=== PATIENT | female | born 1990 | race Caucasian/White ===

== ENCOUNTER 2016-05-20 14:04 | Observation (INO) | payer OTHER ==
[~2016-05-20 14:04] MED LIST: NOMED; [UNRECOGNIZED DRUG - REMARK]
[2016-05-20 15:38] LABS: Mean Corpuscular Hemoglobin 28.3 pg (27.0-35.0)
[2016-05-20] MEDS ORDERED: Lactated Ringer's 1,000 ML IV ONE (15:44)
--- NOTE | 2016-05-20 16:12 | DRSVH ---
PROCEDURE: US OB BIOPHYSICAL PROFILE AND UMBILICAL DOPPLER INDICATIONS: BPP, PLACENTA EVAL OUTSIDE/PRIOR DATING DATA: Last menstrual period (LMP): 09/19/15. LMP-based estimated date of delivery (CARLOS ALBERTO): 06/25/16. First dating scan (date and location): 11/22/15. Estimated date of delivery (CARLOS ALBERTO) from first dating scan: 06/22/16. TECHNIQUE: Real-time scanning was performed of the fetus for biophysical profile, with image documentation. Col or and pulse Doppler interrogation was also performed of the umbilical artery near its insertion into the placenta. COMPARISON: [facility], US, US OB FOLLOW UP GROWTH, 04/28/2016, 14:56. FINDINGS: General: A single living intrauterine gestation is present. Presentation: Vertex. Placenta: Placental position is posterior, without previa. [employer] ATTENDANT Ultrasound Procedure Report Summary Fetus Summary Heart Rate: 113 bpm Gestational Age from initial dating scan: 35 weeks, 2 days Findings(Amniotic Sac) Amniotic Fluid Index (JAY): 20.30 cm Pelvis and Uterus Cervix Length (Mean): 3.42 cm Biophysical Profile Amniotic Fluid Volume: 2 Breathin Gross Body Movement: 2 Tone: 2 Biophysical Profile Sum Score: 8 out of 8 possible points Findings(Pelvic Vascular Structure) Umbilical Artery S/D Ratio: 3.72, 3.83, 2.98, 3.98 IMPRESSION: Normal biophysical profile and cord Doppler with preserved diastolic flow. Dictated by: Julian Sommers A Interpreted: Giuseppe Greer MD on 05/20/2016 at 16:10 Transcribed by: LINA on 05/20/2016 at 16:11 Approved by: Giuseppe Greer M.D. on 05/20/2016 at 22:11
--- NOTE | 2016-05-20 16:17 | HP ---
[address] [address] HISTORY AND PHYSICAL PATIENT: MUNDO SEXTON : 1990 MR#: [id number] ADMIT: 05/20/2016 JOB ID: [id number] CHIEF COMPLAINT: Lightheadedness. HISTORY OF PRESENT ILLNESS: This is a 25-year-old G 2, P 1-0-0-1 female at 34 plus 6 weeks gestational age with an EDC of June 25, 2016 being seen in triage for complaints of dizziness, blurred vision, inability to speak, ringing in her ears and muffled hearing. The patient states that she has a history of atrial fibrillation and was at her [facility] appointment earlier today when she was talking with the intake person. She had sudden onset of tunnel vision, difficulty communicating, blurred vision, feeling like she was going to pass out and what she describes as speech sounding muffled in her ears. She states that that lasted for approximately 20 minutes and she has not felt the same since then. Following this, she called our nurse triage line complaining of similar complaints of blurred vision, ringing in her ears, her legs feeling heavy, headache and muffled speech at which point she was recommended to present to the [facility]. The patient presents to the [facility] on the afternoon of May 20. After being seen in triage, she was noted to have a 7 minute deceleration down to the 70s with good return to baseline following this. She is also complaining of sharp lower abdominal pain which has since resolved. PAST MEDICAL HISTORY: She states that she has a history of atrial fibrillation. After reviewing her [facility] electronic health record, it appears that she does not have a known diagnosis of this. Review of her record shows that she had an episode of tachycardia and called an ambulance several years prior. There was a questionable note of possible irregular heartbeat at that time, however, there was no documentation of this and she was discharged home without any medication. She followed up with a primary care provider who referred her to Cardiology and because Cardiology did not have any documentation of irregular heart rate, they opted to continue with expectant management and treat her for anxiety. She also has a history of anxiety as well previously controlled with SSRIs and bupropion. She does have a history of panic attacks but states that this does not feel the same. PAST SURGICAL HISTORY: section x1 in her last . OBSTETRICAL HISTORY: Her first was full term, primary low transverse section which appears to have been elective due to her questionable cardiac history. Her second is her current , complicated by anxiety and the echogenic intracardiac focus noted on ultrasonography. SOCIAL HISTORY: She denies any tobacco, alcohol or drug use. MEDICATIONS: Currently include vitamins. ALLERGIES: She has allergies to IBUPROFEN which causes hives, LATEX which causes a rash and CITALOPRAM which has caused night terrors. REVIEW OF SYSTEMS: Significant for normal movement. No loss of fluid. No vaginal bleeding. Her sharp lower abdominal pain has resolved and she does have the symptoms as noted above. PHYSICAL EXAM Objectively her blood pressure currently is 154/79. While on Labor and Delivery, it has ranged from 130s-150s systolic over 50s-70s diastolic. Her pulse is 84. She is satting 100% on room air and her temperature is 97.9. In general, she is awake, alert, oriented. She is in no acute distress. She is conversant and her speech is normal. Her cranial nerves are grossly intact. Extraocular movements are intact. Her heart shows regular rate and rhythm. There are no murmurs, rubs or gallops. Her lungs are clear to auscultation. Her abdomen is soft, obese, nontender with size appropriate for dates. heart tones: Electronic monitoring shows 125 baseline, moderate variability with good accelerations present. However, she did have a 7 minute decel down to the 70s shortly after admission, and tocometry shows no contractions. No irritability. ASSESSMENT: This is a 25-year-old G 2, P 1-0-0-1 female at 34 plus 6 weeks gestational age being evaluated for what is presumed to be a presyncopal episode, but with a questionable history of atrial fibrillation, elevated blood pressure at admission and a history of anxiety. PLAN: At this point in time, her symptoms appear to be improving. We will continue to monitor her blood pressures and evaluate with a PIH panel including protein creatinine ratio. Additionally an EKG has been ordered though she appears to be in normal sinus rhythm on examination, and she will be placed on telemetry. Ultrasound has been ordered to evaluate for BPP and her placenta. She had a growth ultrasound two weeks ago which showed EFW in the 52nd percentile with normal interval growth. Additionally a CMP is being collected to evaluate her blood sugar, liver function testing and electrolytes, and at this point in time , we will continue to monitor her overnight given her symptoms and the findings on examination including prolonged heart tone deceleration . Should her blood pressures normalize and her lab and imaging return within normal limits, she can likely discharge home tomorrow morning after extended and maternal monitoring. KIKE
[2016-05-20 16:33] VITALS: PULSE 95
[2016-05-20] MEDS: Lactated Ringer's 1,000 ML IV SCH ×2 (16:44→19:09)
[2016-05-20 20:00] VITALS: PULSE 89
--- NOTE | 2016-05-21 07:04 | PCM.DIOB ---
Obstetrical Disch Instruction Date of Service: May 21, 2016 Dates of Hospitalization Date of Hospital Admission May 20, 2016 at 16:00 Providers Admitting Physician: Deneen Santillan MD Primary Care Physician: Du Bunn MD Attending Physician: Deneen Santillan MD Discharge Diagnosis Discharge Diagnosis Presyncopal episode History of atrial fibrillation (questionable) Elevated blood pressure History of anxiety Problems: Diet Discharge Diet: No restrictions Activity Discharge Activity-General: No restrictions Additional Instructions Discharge Instructions Follow up by the end of this week (Thursday05/23/16) at [facility] for a blood pressure check. If you develop any of the following symptoms (headache, visual changes, abdominal pain) please call the [facility] clinic. If you have vaginal bleeding, call [facility] and if you have symptoms of dizziness & weakness with it, get emergency help. . Follow Up Plan Follow Up Plan [facility] for blood pressure check by Thursday (05/23/16). . Follow-up Provider (F9): [facility] Call your provider for: Shortness of breath, Heavy vaginal bleeding, Epigastric pain Arleen Arias DO May 21, 2016 07:04
[2016-05-21] MEDS: Lactated Ringer's 1,000 ML IV SCH ×2 (08:06)
[2016-05-21 09:25] VITALS: PULSE 84
[2016-05-21 10:57] VITALS: BP 117/71; PULSE 75; RESP 20
--- NOTE | 2016-05-23 15:13 | DIS ---
[address] [address] DISCHARGE SUMMARY PATIENT: MUNDO SEXTON : 1990 MR#: [id number] ADMIT: 05/20/2016 JOB ID: [id number] DIS: 05/21/2016 ADMISSION DIAGNOSES: 1. Visual changes. 2. Headaches. 3. Questionable unresponsiveness. 4. A 34 plus six week . DISCHARGE DIAGNOSIS: Presumed presyncopal event on the day prior. PROCEDURES PERFORMED: None. REASON FOR ADMISSION: This is a 25-year-old, G2, P 1-0-0-1 female who presented at 34 plus six weeks gestational age for extended monitoring after having a 20-minute episode that occurred at [facility] classes earlier in the day that included headaches, ringing in her ears, leg numbness and tingling, and slowed responsiveness due to tunnel vision. She was asked to present to the [facility] at which point she was noted to have elevated blood pressures and a 7-minute deceleration to the 70s. She also had a questionable history of atrial fibrillation and because of this, the decision was made to keep the patient for extended monitoring overnight. HOSPITAL COURSE: The patient was admitted on the . An EKG was completed which showed a normal sinus rhythm, and she had no further heart rate decelerations. CBC and CMP were collected and returned within normal limits. BPP was collected which was 8/8 Her blood pressures decreased to a normal value. She was kept on telemetry overnight which was reassuring, and her symptoms had resolved by the morning of hospital day #2, she had no further heart rate decelerations so at this point in time she was deemed stable for discharge. INSTRUCTIONS AT DISCHARGE: The patient was asked to return to our clinic for a blood pressure check in one week. She was also asked to return for any worsening signs or symptoms of palpitations or similar symptoms to what she had been experiencing prior to admission. A chart review done at the time of admission did not reveal a diagnosis of atrial fibrillation, though there were notes of a questionable diagnosis noted in her chart. If she does become symptomatic again, referral to Cardiology for further evaluation will be considered. Overall, given her reassuring clinical picture, she was discharged home and asked to follow up in the future in our clinic. KIKE
== END 2016-05-21 11:34 | disposition home or self-care (01) ==
LOC: FBCO 14:04 → FBC 16:00
PROVIDERS: ADMIT Obstetrics & Gynecology; ATTEND Obstetrics & Gynecology
DX: R42 Dizziness and giddiness (principal); H53.8 Other visual disturbances; R51 Headache; Z33.1 Pregnant state, incidental
CPT/HCPCS: 36415; 76819; 76820; 80053; 82570; 84156; 84550; 85027; 93005; G0378; G0463; J7120

== ENCOUNTER 2016-06-01 21:43 | Observation (INO) | payer OTHER ==
[2016-06-01] MEDS: Lactated Ringer's 1,000 ML IV SCH ×3 (23:15→23:48)
[2016-06-01] MEDS ORDERED: Ondansetron 2 mg/mL 2 mL Inj IVPUSH ONE (23:15)
[2016-06-02] MEDS: Lactated Ringer's 1,000 ML IV SCH ×2 (01:52→07:15)
[2016-06-02 02:12] LABS: BASOPHILS % (AUTO) 0.1 % (0-3); EOSINOPHILS % (AUTO) 0.9 % (0-5); MONOCYTES % (AUTO) 7.9 % (4-12); Mean Corpuscular Hemoglobin 28.2 pg (27.0-35.0); Mean Corpuscular Volume 86.5 fL (81-100); NEUTROPHILS % (AUTO) 61.4 % (40-74)
[2016-06-02 02:32] LABS: Platelet Count 205 bil/L (150-400)
--- NOTE | 2016-06-02 10:20 | PCM.DIOB ---
Arleen Arias DO 06/02/16 1016: Obstetrical Disch Instruction Date of Service: Jun 02, 2016 Dates of Hospitalization Date of Hospital Admission Jun 02, 2016 at 01:14 Providers Admitting Physician: Amira Guevara MD Primary Care Physician: Du Bunn MD Attending Physician: Amira Guevara MD Discharge Diagnosis Discharge Diagnosis Pre-term contractions not in labor No cervical change Problems: (1) contractions Qualifiers: Trimester: third trimester Qualified Code: O47.03 - False labor before 37 completed weeks of gestation, third trimester Status: Acute ICD Code: O47.00 (2) History of delivery, currently Status: Acute ICD Code: O34.21 Diet Discharge Diet: No restrictions Activity Discharge Activity-General: Other (Avoid vigorous activity and heavy lifting. ) Additional Instructions Discharge Instructions -Take warm baths and avoid vigorous activity or heavy lifting. -Take acetaminophen (Tylenol) as need for pain. -Stay hydrated. Remember to keep your bladder empty and drink plenty of water. -You are being sent home with two different medications for nausea. Take as directed and only as needed. -Plan for follow up at [facility] next week. -If you have an increase in frequency or intensity of contractions before tomorrow, return to the [facility]. -If you develop fever or chills, experience decrease movement, vaginal bleeding, or leaking of fluids return to the [facility]. -Return to [facility] tomorrow between 8-9am for additional monitoring. Follow Up Plan Follow Up Plan Return to [facility] tomorrow between 8-9am for NST. Follow up next week at [facility]. [facility]F9[facility] Call your provider for: Fever or Chills, Shortness of breath, Heavy vaginal bleeding, Epigastric pain Du Bunn MD 06/02/16 1106: Arleen Arias DO Jun 02, 2016 10:16 Du Bunn MD Jun 02, 2016 11:06
[2016-06-02] MEDS ORDERED: ONDA4TAB6 PO (10:21)
[2016-06-02] MEDS ORDERED: PROM25TA14 PO (10:21)
--- NOTE | 2016-06-02 10:34 | PCM.HPOB ---
Subjective Date of Service: Jun 02, 2016 Referring Provider: Admitting Physician: Amira Guevara MD Primary Care Physician: Du Bunn MD Attending Physician: Amira Guevara MD Chief Complaint Contractions History of Present History of Present Illness 25 y/o at 36w5d by LMP consistent with 9wk ultrasound presented to [facility] for contractions every 3-5minutes for several hours. She rated her pain with contractions as 8/10. complicated by previous , anxiety/depression, and an overnight hospital stay for presyncopal episode and 7 minutes of decelerations to the 70s on 05/20-05/21. She had a cardiac echogenic focus on anatomy ultrasound (02/14/16) with normal interval growth and BPP on repeat ultrasound. She has a questionable history of Afib but chart review does not show diagnosis. She is scheduled for repeat low transverse on . External monitoring revealed contractions q 2-3.5 minutes lasting 40- 70seconds and rated as mild-moderate. FHR baseline 115, moderate variability, accelerations present, no decelerations. Cervix: 1cm dilated, thick, posterior, -3station. Past Medical History Obstetrical History: section 10/03/2014 Gynecologic History: None Medical History: Migraines Nephrolithiasis Inguinal hernia Depression Anxiety Surgical History: section 2015 Hernia repair 1997 . Hx Tobacco Use: Yes Smoking Status: Former Smoker Hx Alcohol Use: No Hx Substance Use: No Past Family History Living Arrangement: with Family Review of Systems ROS Complete review of systems conducted and otherwise negative except as above in HPI. Allergy Coded Allergies: latex (Verified Allergy, Intermediate, rash, 12/06/15) ibuprofen (Verified Adverse Reaction, Intermediate, NAUSEA, 12/06/15) GI INTOLERANCE Uncoded Allergies: ANTIANXIETY MEDICATION (Adverse Reaction, Intermediate, 06/25/15) NIGHT TEARS Exam Vital Signs temp 36.5, BP 131/72, HR 93. Exam FHR baseline 115, moderate variability, accelerations present, no decelerations. Constitutional: Well-developed, Well-nourished HEENT: Atraumatic Lungs: Clear to Auscultation Heart: Regular Rate/Rhythm Abdomen: Gravid Extremities: No Edema Neurological/Psychiatric: Alert, Oriented X3 Labs/Diagnostics Labs 06/01/16 22:30: White Blood Count 11.3, Red Blood Count 3.93, Hemoglobin 11.1, Hematocrit 34.0, Mean Corpuscular Volume 86.5, Mean Corpuscular Hemoglobin 28.2, Mean Corpuscular Hemoglobin Concent 32.6, Red Cell Distribution Width 14.8, Platelet Count 205, Neutrophils (%) (Auto) 61.4, Lymphocytes (%) (Auto) 29.4, Monocytes ( %) (Auto) 7.9, Eosinophils (%) (Auto) 0.9, Basophils (%) (Auto) 0.1, Hold Purple Top Tube Received . Lab/Diagnostic Information Labs Blood type: O positive Antibody screen-negative GBS negative PAP negative (negative 10/2013) Varicella/Rubella immune RPR nonreactive HBsAg negative HepC negative HIV screen negative HbA1c 5.6 RSH 3.24 Chlamydia negative Gonorrhea negative US OB<14wks (11/22/2015) -LMP 09/19/15 -LMP-based CARLOS ALBERTO 06/25/16 (Final CARLOS ALBERTO) -First dating scan 11/22/15 -CARLOS ALBERTO from first dating scan 06/22/16 US OB Reevaluate Incomplete Anatomy Limited (02/14/16) -Targeted cardiac anatomy remarkable for a left ventricular echogenic focus, most likely reflecting a normal variant. US f/u Left ventricular echogenic focus (04/28/16) -Normal interval growth US f/u for growth (05/20/2016) -Normal biophysical profile and cord Doppler with preserved diastolic flow Maternal Blood Type: O Hx Rho(D) Immune Globulin: Yes Antibody Screen: Negative Group B Strep Results: Negative Rubella: Immune OB Intrapartum Assessment/Plan Assessment 25 y/o at 36w5d who presented to [facility] for pre-term contractions without cervical change. She is scheduled for repeat low transverse on 06/18/16. Problems: (1) contractions Qualifiers: Trimester: third trimester Qualified Code: O47.03 - False labor before 37 completed weeks of gestation, third trimester Plan: -Mother and baby monitored overnight. Pt not in labor, no cervical change. -Pt to return to [facility] tomorrow between 8-9am for repeat NST. -Counseled regarding signs/symptoms that warrant return to [facility] before tomorrow. -Pt discharged in stable condition, status reassuring. -Scripts provided for oral promethazine & zofran prn -Repeat scheduled for 06/18/16 -Follow up scheduled [facility] at [facility] Status: Acute ICD Code: O47.00 (2) History of delivery, currently Plan: -Repeat low transverse section scheduled for 06/18/16. Status: Acute ICD Code: O34.21 Pain Evaluation: Adequate Pain Control Post plan: Anticipate discharge home today Attending Statement The patient was seen and examined together with Dr. Arias on 06/02/2016 and I agree with the history, exam and plan as outlined in the note above. She has had IVF and prolonged monitoring. She is not in labor. She does not evidence of uterine rupture at this time. While she is at risk for uterine rupture, her risk at this time is low. There is no indication for delivery. We will continue to monitor Pretty closely as an outpatient and strict precautions reviewed with Pretty. We will discharge her home. / MD Hugo Hernadez Courtney M DO Jun 02, 2016 07:19 Du Bunn MD Jun 02, 2016 11:04
--- NOTE | 2016-06-02 10:48 | PCM.DC.OB ---
Obstetrical Discharge Summary Date of Service Jun 02, 2016 Date of hospital admission Jun 02, 2016 at 01:14 Date of Discharge: Jun 02, 2016 Providers Admitting Physician: Amira Guevara MD Primary Care Physician: Du Bunn MD Attending Physician: Amira Guevara MD Problems: (1) contractions Qualifiers: Trimester: third trimester Qualified Code: O47.03 - False labor before 37 completed weeks of gestation, third trimester Plan: -Mother and baby monitored overnight. Pt not in labor, no cervical change. -Pt to return to [facility] tomorrow between 8-9am for repeat NST. -Counseled regarding signs/symptoms that warrant return to [facility] before tomorrow. -Pt discharged in stable condition, status reassuring. -Scripts provided for oral promethazine & zofran prn -Repeat scheduled for 06/18/16 -Follow up scheduled next [facility] at [facility] Status: Acute ICD Code: O47.00 (2) History of delivery, currently Plan: -Repeat low transverse section scheduled for 06/18/16. Status: Acute ICD Code: O34.21 Brief History and Physical: 25 y/o at 36w5d with pre-term contractions not resulting in cervical change. Category 1 tracing. Cervix: 1cm dilated, thick, posterior, -3 station. Vital Signs temp 36.5, BP 131/72, HR 93. Constitutional: Well-developed, Well-nourished HEENT: Atraumatic Lungs: Clear to Auscultation Heart: Regular Rate/Rhythm Abdomen: Gravid Extremities: No Edema Neurological/Psychiatric: Alert, Oriented X3 Labs Blood type: O positive Antibody screen-negative GBS negative PAP negative (negative 10/2013) Varicella/Rubella immune RPR nonreactive HBsAg negative HepC negative HIV screen negative HbA1c 5.6 RSH 3.24 Chlamydia negative Gonorrhea negative US OB<14wks (11/22/2015): CARLOS ALBERTO 06/25/16 Hospital Course: 25 y/o at 36w5d by LMP consistent with 9wk ultrasound presented to [facility] with contractions every 3-5minutes for several hours. She was monitored overnight and pre-term contractions did not result in cervical change. NST was reassuring and she was discharged the following morning with plan to return in 24hrs for repeat NST. She is scheduled for repeat low transverse on 06/18/16. External monitoring revealed contractions q 2- 3.5 minutes lasting 40-70seconds and rated as mild-moderate. FHR baseline 115, moderate variability, accelerations present, no decelerations. Cervix: 1cm dilated, thick, posterior, -3 station. ([Anxietrym Depression]) 0 (Reported) No Historical Medication (No Historical Medication) Ea (Reported) Ondansetron (Zofran) 4 Mg Tablet 4 MG PO Q4H PRN PRN For Nausea Prescribed by: LANDON MARSHALL DO Promethazine (Promethazine) 25 Mg Tablet 25 MG PO Q8H PRN PRN For Nausea/ Vomiting Prescribed by: LANDON MARSHALL DO Disposition Patient discharged home in stable condition. contractions without cervical change. status reassuring. Follow-up plan Patient to return to [facility] tomorrow between 8-9am for NST. Follow up next week at [facility]. Discharge Diet: No restrictions Discharge Activity-General: Other (Avoid vigorous activity and heavy lifting. ) Patient instructions -Take warm baths and avoid vigorous activity or heavy lifting. -Take acetaminophen (Tylenol) as need for pain. -Stay hydrated. Remember to keep your bladder empty and drink plenty of water. -You are being sent home with two different medications for nausea. Take as directed and only as needed. -Plan for follow up at [facility] next week. -If you have an increase in frequency or intensity of contractions before tomorrow, return to the [facility]. -If you develop fever or chills, experience decrease movement, vaginal bleeding, or leaking of fluids return to the [facility]. -Return to [facility] tomorrow between 8-9am for additional monitoring. Attending Statement: The patient was seen and examined together with Dr. Marshall on and I agree with the history, exam and plan as outlined in the note above. / mD Hugo Black Courtney M DO Jun 02, 2016 10:34 Du Bunn MD Jun 02, 2016 11:06
== END 2016-06-02 10:30 | disposition home or self-care (01) ==
LOC: FBCO 21:43 → FBC 06-02 01:14
PROVIDERS: ADMIT Obstetrics & Gynecology; ATTEND Obstetrics & Gynecology
DX: Z34.93 Encounter for supervision of normal pregnancy, unspecified, third trimester (principal); Z3A.36 36 weeks gestation of pregnancy
CPT/HCPCS: 36415; 85025; 86850; G0378; G0463; J7120; Q0169

== ENCOUNTER 2016-06-18 05:07 | Inpatient (IN) | payer OTHER ==
[~2016-06-18] VITALS: Ht 182.9 cm; Wt 105.2 kg
[~2016-06-18 05:07] MED LIST changes: +CeFAZolin Inj 2 GM in IV Premix 1 EACH IV ONE; +Lactated Ringer's 1,000 ML IV SCH; +ONDA4TAB6 PO; +PROM25TA14 PO
[2016-06-18] MEDS ORDERED: Methylergonovine 0.2 mg/mL Inj IM PRN ×2 (06:00→09:40)
[2016-06-18] MEDS ORDERED: Oxytocin 10 Unit/mL Inj IM PRN ×2 (06:00→09:40)
[2016-06-18] MEDS ORDERED: Sodium Citrate-Citric Acid 15 mL Solution PO SCH (06:00)
[2016-06-18] MEDS ORDERED: Hemorrhage Kit, Post Partum XX ONE ×2 (06:00→09:40)
[2016-06-18] MEDS ORDERED: Carboprost 250 mCg/mL Inj IM PRN ×2 (06:00→09:40)
[2016-06-18] MEDS ORDERED: Lactated Ringer's 1,000 ML IV SCH ×2 (06:00→09:39)
[2016-06-18 06:37] LABS: Mean Corpuscular Hemoglobin 27.7 pg (27.0-35.0); Mean Corpuscular Volume 85.4 fL (81-100)
--- NOTE | 2016-06-18 06:59 | PCM.HPANE ---
Patient Data Surgeon Admitting Provider:Deneen Santillan MD Attending Provider:Deneen Santillan MD Primary Care Physician:Zoë Petit Other Provider:Edward Hanson Anesthesia Reason for Visit Term Repeat C Section TERM REPEAT C SECTION Ht/WT & BMI Body Mass Index Allergies Coded Allergies: latex (Verified Allergy, Intermediate, rash, 12/06/15) ibuprofen (Verified Adverse Reaction, Intermediate, NAUSEA, 12/06/15) GI INTOLERANCE Uncoded Allergies: ANTIANXIETY MEDICATION (Adverse Reaction, Intermediate, 06/25/15) NIGHT TEARS Diabetes History Hx Diabetes?: No Medications Reported Medications Vit W-Ca,Fe,FA(<1 mg) ( Vitamins)1 Each Tablet1 Each PO DAILY 06/18/16 [Anxietrym Depression] No Conflict Check 06/28/13 No Historical Medication Ea 05/30/12 Discontinued Scripts Ondansetron (Zofran)4 Mg Tablet4 Mg PO Q4H PRN For Nausea #30 TABLET Prov:Arleen Arias DO 06/02/16 Promethazine 25 Mg Qphzed31 Mg PO Q8H PRN For Nausea/Vomiting #20 TABLET Prov:Arleen Arias DO 06/02/16 History Cardiovascular History: Denies:: Congestive Heart Failure Hypertension Other Cardiac History: history of afib Respiratory History: Denies:: Tuberculosis Hx Surgeries?: Yes (c section 09/25, hernia) Hx Diabetes: No Hx Alcohol Use: NoHx Substance Use: No Smoking Status: Former Smoker Have You Smoked inLast 12 mo: No Stop/Bang Risk Assessment Category Category 1A: Patient has history of documented sleep apnea, and HAS NOT received any narcotic, sedative or anesthesia administration during this stay. Category 1B: Patient has history of documented sleep apnea, and HAS received any narcotic , sedative or anesthesia administration during this stay Category 2: Patient has SUSPECTED Obstructive Sleep Apnea, and HAS received any narcotic , sedative or anesthesia administration during this stay. Category 3: Patient has SUSPECTED Obstructive Sleep Apnea and HAS NOT received narcotic, sedative or anesthesia administration during this stay. Category 4: Outpatient in Procedural Areas with known sleep apnea or who screen positive for High Risk via the STOP/BANG questionnaire. Meds/Labs/Diagnostics Admission Meds Current Medications Lactated Ringer's (Lr) 1,000 ml @ 120 mls/hr Q8H20M IV Last administered on t 06:38; Start 06/18/16 at 05:00; Stop 06/18/16 at 13:19 Labs Test 06/18/16 06:15 White Blood Count 9.5th/mm3 (3.8-10.1) Red Blood Count 3.90mil/mm3 (3.90-5.20) Hemoglobin 10.8g/dL (12.0-15.6) Hematocrit 33.3% (35.0-46.0) Mean Corpuscular Volume 85.4fL (81-100) Mean Corpuscular Hemoglobin 27.7pg (27.0-35.0) Mean Corpuscular Hemoglobin Concent 32.4% (32.0-37.0) Red Cell Distribution Width 15.0% (12.3-15.4) Platelet Count 184bil/L (150-400) Plan Impression Patient chart reviewed, patient interviewed and anesthestic plan with risks, benefits, and alternatives discussed, and informed consent obtained. ASA Physical Status: ASA2 Mod Systemic Disease Anesthetic Plan: SAB Bene/Risks/Altern/Consents: Yes HP Complete Prior to Induction: Yes Ene Pickett MD Jun 18, 2016 06:59
[2016-06-18] MEDS ORDERED: Morphine PF 1 mg/mL 10 mL Inj ONE (07:16)
[2016-06-18] MEDS ORDERED: CeFAZolin Inj 2 GM in IV Premix 1 EACH IV ONE (07:30)
[2016-06-18] MEDS ORDERED: PREN1TAB87 PO (07:39)
[2016-06-18] MEDS ORDERED: Glycopyrrolate 0.2 mg/mL 5 mL Inj ONE (08:30)
[2016-06-18] MEDS ORDERED: Phenylephrine/NS-PF 100 mCg/mL 5 mL Syringe IVPUSH ONE (08:30)
[2016-06-18] MEDS ORDERED: Ondansetron 2 mg/mL 2 mL Inj ONE (08:30)
[2016-06-18] MEDS ORDERED: fentaNYL-PF 50 mCg/mL 2 mL Inj IVPUSH PRN (08:45)
[2016-06-18] MEDS ORDERED: EPHEDrine Sulfate 50 mg/mL Inj IVPUSH PRN (08:45)
[2016-06-18] MEDS ORDERED: Ondansetron 2 mg/mL 2 mL Inj IVPUSH PRN (08:45)
[2016-06-18] MEDS ORDERED: Atropine 0.4 mg/mL Inj IV PRN (08:45)
[2016-06-18] MEDS ORDERED: MetoCLOpramide 5 mg/mL 2 mL Inj IVPUSH PRN (08:45)
[2016-06-18] MEDS ORDERED: Dexamethasone 4 mg/mL Inj IVPUSH PRN (08:45)
[2016-06-18] MEDS ORDERED: LANOlin HPA 7 Gm Ointment TOPICAL PRN (09:40)
[2016-06-18] MEDS ORDERED: Sodium Chloride LOK Flush 10 mL Syringe IVFLUSH PRN (09:40)
[2016-06-18] MEDS ORDERED: hydrOXYzine Pamoate 25 mg Capsule PO PRN (09:40)
[2016-06-18] MEDS ORDERED: diphenhydrAMINE 50 mg Capsule PO PRN (09:40)
[2016-06-18] MEDS ORDERED: Oxytocin 30 Units/500 mL LR 30 UNITS in IV Premix 1 EACH IV PRN (09:40)
--- NOTE | 2016-06-18 09:57 | PCM.ANEP1 ---
Post Anesthesia Phase 1 PACU Phase 1 Assessment Anesthetic Administered: SAB Level of Alertness: Awake, talking VEGA's with Equal Strength: No Pain: No Nausea or Vomiting: No Oxygen Delivery: Room Air Ene Pickett MD Jun 18, 2016 09:57
[2016-06-18] MEDS: Acetaminophen IV 1,000 MG in IV Premix 1 EACH IV PRN ×2 (10:36→13:33)
--- NOTE | 2016-06-18 11:23 | OP ---
[address] [address] OPERATIVE REPORT PATIENT: MUNDO SEXTON : 1990 MR#: [id number] ADMIT: 06/18/2016 JOB ID: [id number] DATE OF SURGERY: 06/18/2016 PREOPERATIVE DIAGNOSIS(ES): 1. A 39 week intrauterine , here for repeat low transverse section. 2. History of elective delivery in her first , declined trial of labor after . 3. Anxiety. 4. Echogenic intracardiac focus of the fetus. 5. Syncopal event in requiring prolonged monitoring with heart rate bradycardia noted on extended antepartum monitoring at 35 weeks. POSTOPERATIVE DIAGNOSIS(ES): 1. A 39 week intrauterine , here for repeat low transverse section. 2. History of elective delivery in her first , declined trial of labor after . 3. Anxiety. 4. Echogenic intracardiac focus of the fetus. 5. Syncopal event in requiring prolonged monitoring with heart rate bradycardia noted on extended antepartum monitoring at 35 weeks. PROCEDURE PERFORMED: Repeat low transverse section. SURGEON: Deneen Santillan MD. ED SPECIAL EDUCATION TEACHER: Estefani Nolen MD who was necessary for retraction and to help with difficult case, as the patient had a moderate amount of scar tissue within her abdomen. ANESTHESIA: Spinal with Duramorph. ESTIMATED BLOOD LOSS: 500 cc. FLUID REPLACEMENT: 800 cc of crystalloid. URINE OUTPUT: 300 cc of clear yellow urine. FINDINGS: Liveborn male infant, born on June 18, 2014, weighing 8 pounds 3 ounces or 3711 g, with Apgars of 1 at one minute, 6 at five minutes and 9 at 10 minutes. Delivery time was 8:45 a.m. COMPLICATIONS: None. INDICATIONS: This is a 25-year-old, G2, P 1-0-0-1 female who is presenting at 39 plus 0 weeks gestational age with EDC of June 25, 2016, for a planned elective repeat low transverse section. Her was complicated by history of x1 in her first that was elective due to a questionable history of atrial fibrillation, which has never been confirmed. She elected to forego trial of labor and proceed with a repeat section. She also had anxiety and questionable history of cardiac arrhythmia, possibly atrial fibrillation, with a syncopal event occurring at 35 weeks with documented bradycardia during extended monitoring with recovery following this and an echogenic intracardiac focus of the fetus. lab data showed a blood type of O positive, antibody screen negative, rubella immune, varicella immune, hep B surface antigen negative, RPR nonreactive, HIV negative. She was also GBS negative. She was admitted on the 8th to undergo the above-stated procedure after risks, benefits and alternatives were discussed with her prior to proceeding. DESCRIPTION OF PROCEDURE: The patient was taken to the operating room. She was given a spinal with Duramorph. She was then prepped and draped in the usual sterile fashion for section. Under excellent anesthesia, the skin was entered sharply through a Pfannenstiel incision along the previous incision line. This was carried down sharply to the level of the rectus fascia. The fascia was then incised in the midline and this incision was carried sharply bilaterally. There was noted to be a moderate amount of scar tissue along the fascia to the underlying omentum which was carefully taken down sharply and due to the large diastasis, the peritoneum was easily identifiable and entered bluntly. This entrance was extended bluntly bilaterally. The bladder blade was then placed. A bladder flap was created after lifting up the vesicouterine peritoneum and sharply incising it off the lower uterine segment and reflecting it downward. The bladder blade was then placed. The lower uterine segment was noted to be very thin, and a small incision was made using the scalpel. There was return of a moderate amount of clear amniotic fluid. This incision was extended bluntly. The 's vertex was brought to the uterine incision and delivered atraumatically through the uterine incision. Anterior shoulder delivered easily, followed by the posterior shoulder. The was noted to have low tone at delivery, so the cord was clamped and cut, and the infant was passed to the Nursing and Respiratory teams who were in attendance. Due to the poor tone that was identified, cord blood gases were collected by removing a section of the umbilical cord. Cord blood was then obtained. The placenta delivered intact spontaneously and was passed off the table. Pitocin was placed in the IV bag to firm the uterus. The uterus was removed from the abdominal cavity, covered with moist laps and cleaned with a lap sponge. The uterus was then closed in a single locking layer of 0 Vicryl. A second imbricating layer of 0 Vicryl was then placed on top of this, and good hemostasis was achieved. The posterior cul-de-sac was irrigated. The uterus was replaced into the abdominal cavity. The pericolic gutters were cleared of clot and debris, and the incision was again noted to be hemostatic. Due to the large diastasis, the rectus muscles were then reapproximated in the midline with 0 Vicryl using both interrupted and running suture. The fascia was then closed with 0 Vicryl in a running, nonlocking fashion. The subcutaneous tissues made hemostatic with cautery and was then closed with plain gut suture, and the skin was then closed with 4-0 Vicryl. The patient tolerated this procedure well. Recovered in labor and delivery with her infant. All sponge, needle, instrument counts were correct at the completion of the procedure. KIKE
--- NOTE | 2016-06-18 17:49 | PCM.ANEP2 ---
Post Anesthesia Evaluation ASA/CMS Post Anesthesia VS in Patient's Normal Range?: Yes Resp Stable; Airway Patent?: Yes CV Function & Hydration Stable: Yes Mental Status Recovered?: Yes Pain control Satisfactory?: Yes N/V Control Satisfactory?: Yes Ene Pickett MD Jun 18, 2016 17:49
[2016-06-18] MEDS: oxyCODONE-Acetamin 5-325 mg Tablet PO PRN ×2 (18:26→22:07)
[2016-06-19] MEDS: oxyCODONE-Acetamin 5-325 mg Tablet PO PRN ×3 (02:15→22:22)
--- NOTE | 2016-06-19 06:53 | PCM.PNOBPP ---
Subjective Date of Service Jun 19, 2016 Post : Repeat Ceserean Delivery Subjective This is a 25-year-old, G2, P 2-0-0-2 female post- day 1 status post elective repeat low transverse on 06/18/16 at 39 plus 0 weeks gestational age. Her was complicated by history of x1 in her first that was elective due to a questionable history of atrial fibrillation, which has never been confirmed, anxiety, and a syncopal event occurring at 35 weeks with documented bradycardia during monitoring with recovery following this and an echogenic intracardiac focus of the fetus. lab data showed a blood type of O positive, antibody screen negative, rubella immune, varicella immune, hep B surface antigen negative, RPR nonreactive, HIV negative. She was also GBS negative. This morning patient is doing well. The catheter has been removed and she has been able to urinate on her own. Bleeding has slowed and she is soaking 1 pad every 3-4 hours. She has not had a bowel movement but has passed flatus. She is breast-feeding exclusively and baby is latching well. She is tolerated oral intake without nausea or vomiting. Pain is rated as an 8 prior to pain medications and after administration decreases to a 3 or 4. Pain currently controlled with Roxicodone as patient reached her Tylenol limit with Percocet. Lochia: Normal Pain Management: PO pain meds Gastrointestinal: Good Appetite, No N/V, Passing Flatus Postop Activity: Ambulating in Room Only Group B Strep Results: Negative Rubella: Immune Blood Type: O RH Type: Positive Labs Laboratory Tests 06/18/16 06:15: White Blood Count 9.5, Red Blood Count 3.90, Hemoglobin 10.8, Hematocrit 33.3, Mean Corpuscular Volume 85.4, Mean Corpuscular Hemoglobin 27.7, Mean Corpuscular Hemoglobin Concent 32.4, Red Cell Distribution Width 15.0, Platelet Count 184 Exam Vital Signs Vital Signs: VS reviewed, stable Exam Abdomen: Uterus is, Fundus firm, Abdomen soft, Abdomen appropriately tender Perineum: Intact : UOP has been, Voiding without difficulty Extremities: Normal pulses, Edema 1+, SCDs on Lungs: Clear to Auscultation Heart: Regular Rate/Rhythm, Normal S1, Normal S2, No Murmurs/Rubs/Gallops General: Alert, Oriented X3, Cooperative, No Acute Distress Surgical Wound : Wound Location/Description Pfannenstiel incision Incision General Appearence: Steri Strips, Wound under dressing Dressing & Drainage Status: Dry & Intact, No Odor OB Post Assessment/Plan Assessment 1. 25-year-old, G2, P 2-0-0-2 female post- day 1 status post elective repeat low transverse on 06/18/16 at 39 plus 0 weeks gestational age. 2. History of elective delivery in her first . 3. Anxiety. 4. Echogenic intracardiac focus of the fetus. 5. Syncopal event in requiring prolonged monitoring with heart rate bradycardia noted on extended antepartum monitoring at 35 weeks. Pain Management: Roxicodone and ibuprofen Pain Evaluation: Adequate Pain Control VTE Mechanical Devices: Intermittant Pneumatic CD Post plan: Continue routine post care Plan: 1. She is doing well and meeting all goals. Will continue routine care at this time. 2. Continue pain control with Roxicodone as needed. Attending Statement The patient was seen and examined and I agree with the history, exam and plan as outlined in the note above. MARYJANE GODINEZ DO Jun 19, 2016 06:53 Deneen Santillan MD Jun 20, 2016 11:52
[2016-06-19 06:57] LABS: Mean Corpuscular Hemoglobin 27.4 pg (27.0-35.0); Mean Corpuscular Volume 87.1 fL (81-100)
[2016-06-19] MEDS ORDERED: Ascorbic Acid 500 mg Tablet PO SCH (08:00)
[2016-06-20] MEDS: oxyCODONE-Acetamin 5-325 mg Tablet PO PRN (02:30)
--- NOTE | 2016-06-20 07:56 | PCM.DIOB ---
Obstetrical Disch Instruction Dates of Hospitalization Date of Hospital Admission Jun 18, 2016 at 05:07 Providers Admitting Physician: Deneen Santillan MD Primary Care Physician: Zoë Petit Attending Physician: Deneen Santillan MD Discharge Diagnosis Discharge Diagnosis 1. 25 year old female post day 2 status post elective repeat low transverse on 06/18/16. 2. History of elective delivery in her first , declined trial of labor after . 3. Anxiety. 4. Echogenic intracardiac focus of the fetus. 5. Syncopal event in requiring prolonged monitoring with heart rate bradycardia noted on extended antepartum monitoring at 35 weeks. Post Operative diagnosis 1. A 39 week intrauterine , here for repeat low transverse section. 2. History of elective delivery in her first , declined trial of labor after . 3. Anxiety. 4. Echogenic intracardiac focus of the fetus. 5. Syncopal event in requiring prolonged monitoring with heart rate bradycardia noted on extended antepartum monitoring at 35 weeks. Problems: Diet Discharge Diet: No restrictions Activity Discharge Activity-General: Pelvic Rest for 6 weeks, Try not to overdue, Be up and about, Balance rest and activity, No lifting >15 pounds for 2 weeks Dressing and Incisional Care Dressing Care: Allow Steri Stripes to fall off Hygiene: DO NOT soak incision under water, NO bathtub, hot tub or whirlpool Follow Up Plan Follow Up Plan Please follow up with [facility] within 2 and 6 weeks. Call your provider for: Fever or Chills, Shortness of breath, Heavy vaginal bleeding, Heavy bleeding, Epigastric pain, Excessive constipation, Vaginal discomfort, Red painful breasts Additional Information We are prescribing you Keflex, antibiotic, to prevent skin infection at the site of your incision. Please take it as directed. Christy Baker DO Jun 20, 2016 07:52
[2016-06-20] MEDS ORDERED: CEPH-512 PO (07:58)
--- NOTE | 2016-06-20 08:18 | PCM.DC.OB ---
Obstetrical Discharge Summary Date of Service Jun 20, 2016 Date of hospital admission Jun 18, 2016 at 05:07 Date of Discharge: Jun 20, 2016 Providers Admitting Physician: Deneen Santillan MD Primary Care Physician: Zoë Petit Attending Physician: Deneen Santillan MD Diagnosis at Time of Discharge 1. 25-year-old post day 2 status post elective repeat low transverse . 2. History of elective delivery in her first , declined trial of labor after . 3. Anxiety. 4. Echogenic intracardiac focus of the fetus. 5. Syncopal event in requiring prolonged monitoring with heart rate bradycardia noted on extended antepartum monitoring at 35 weeks. Problems: Date of Procedure: Jun 18, 2016 Brief History and Physical: This is a 25-year-old, G2, P 2 female post- day 2 status post elective repeat low transverse on 06/18/16 at 39 plus 0 weeks gestational age. Her was complicated by history of x1 in her first that was elective due to a questionable history of atrial fibrillation, which has never been confirmed, anxiety, and a syncopal event occurring at 35 weeks with documented bradycardia during monitoring with recovery following this and an echogenic intracardiac focus of the fetus. lab data showed a blood type of O positive, antibody screen negative, rubella immune, varicella immune, hep B surface antigen negative, RPR nonreactive, HIV negative. She was also GBS negative. Patient delivered live born male , 8 pounds, 3 ounces (3711 g), with Apgars of 1 at one minute, 6 at five minutes, and 9 at ten minutes. This morning patient is doing well. She is afebrile and her vital signs are stable. She is urinating without any difficulties. She has not had bowel movement but has passed flatus. She is ambulating on her own. She is breast- feeding exclusively and baby is latching well. She is tolerating oral intake without nausea or vomiting. Pain is well controlled. Her lab values on 06/19/16: White Blood Count 10.1, Hemoglobin 10.6, Hematocrit 33.7, Platelet Count 176. Hospital Course: Patient is day two after repeated low transverse section on 06/18/16.Patient and baby are doing well. Patient is breast-feeding exclusively. She will discuss contraception at her visit. She has minimal pain that is well controlled with pain medications.Tolerating oral intake without nausea and vomiting, and ambulating without difficulties. Cephalexin (Keflex) 500 Mg Capsule 500 MG PO QID Prescribed by: MP FORBES DO Vit W-Ca,Fe,FA(<1 mg) ( Vitamins) 1 Each Tablet 1 EACH PO DAILY (Reported) Discontinued Medications ([Anxietrym Depression]) 0 (Reported) No Historical Medication (No Historical Medication) Ea (Reported) Ondansetron (Zofran) 4 Mg Tablet 4 MG PO Q4H PRN PRN For Nausea Prescribed by: LANDON MARSHALL DO Promethazine (Promethazine) 25 Mg Tablet 25 MG PO Q8H PRN PRN For Nausea/ Vomiting Prescribed by: LANDON MARSHALL DO Discharge Diet: No restrictions Discharge Activity-General: Pelvic Rest for 6 weeks, Try not to overdue, Be up and about, Balance rest and activity, No lifting >15 pounds for 2 weeks Additional information 1. Please take Keflex 500 mg four times a day for 5 days to prevent skin infection 2. Please take Percocet as prescribed for pain as needed 3, Please take Colace 100 mg twice a day as needed for constipation Mp Forbes DO Jun 20, 2016 08:18
[2016-06-20] MEDS ORDERED: OXYC1TAB24 PO (08:26)
[2016-06-20] MEDS ORDERED: DOCU-41 PO (08:26)
[2016-06-20 08:41] VITALS: BP 119/61; PULSE 88; RESP 18
== END 2016-06-20 11:12 | disposition home or self-care (01) | DRG 766 ==
LOC: FBC 05:07 → EDSTATUS 07:15
PROVIDERS: ADMIT Obstetrics & Gynecology; ATTEND Obstetrics & Gynecology
PROC: 10D00Z1 Extraction of Products of Conception, Low, Open Approach (ICD-10-PCS; principal; 2016-06-18 07:15)
DX: O82 Encounter for cesarean delivery without indication (principal); F41.9 Anxiety disorder, unspecified; O34.211 Maternal care for low transverse scar from previous cesarean delivery; Z3A.39 39 weeks gestation of pregnancy; Z37.0 Single live birth; O99.343 Other mental disorders complicating pregnancy, third trimester